=== PATIENT | male | born 1965 | race Caucasian/White ===

== ENCOUNTER 2017-01-10 19:15 | Emergency (ER) | payer OTHER ==
[2017-01-10] MEDS ORDERED: DIAZEPAM 10 MG/2 ML SYR IVP ONE (19:36)
[2017-01-10] MEDS ORDERED: ONDANSETRON 4 MG/2 ML VIAL IVP ONE (19:37)
[2017-01-10] MEDS ORDERED: NS 1,000 ML IV ONE (19:37)
[2017-01-10] MEDS ORDERED: MECLIZINE HCL 25 MG TAB PO ONE (19:37)
--- NOTE | 2017-01-10 19:42 | UCPHY ---
H & P Patient Type: Established Chief Complaint Nursing Narrative: C/o dizziness starting 30 min [employer]. 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 He has this fairly commonly especially when he is fatigued. He worked late last night and only got 4 hours asleep. He states that this is very typical of his disorder. He has been worked up by Neurology Dr. Wynn and had several MRIs all of which have been negative for ischemia. He has been told that this is not benign positional vertigo but is simply vertigo. It typically resolves with meclizine but not when it has progressed as far as it has today. He has meclizine and Valium at home but not here with him at work. He is nauseous but has not vomited. He does not have a fever. No tinnitus. No headache. his symptoms began about an hour ago while he was working. REVIEW OF SYSTEMS: Constitutional: denies: chills, fever, recent illness, recent injury EENTM: See HPI Respiratory: denies: cough, shortness of breath Cardiac: denies: chest pain, irregular heart rate, lightheadedness, palpitations Gastrointestinal/Abdominal: denies: abdominal pain, diarrhea, nausea, vomiting, blood streaked stools Genitourinary: denies: dysuria, frequency, hematuria, pain Musculoskeletal: denies: joint pain, muscle pain Skin: denies: lesions, rash, jaundice, bruising Neurological: denies: headache, numbness, paresthesia, tingling, dizziness, weakness Hematologic/Lymphatic: denies: blood clots, easy bleeding, easy bruising Immunologic/allergic: denies: HIV/AIDS, transplant EXAM: GENERAL: Well-appearing, well-nourished and in no acute distress. HEAD: Atraumatic, normocephalic. EYES: Mild nystagmus to the left. No to the right. Pupils equal round and reactive to light, extraocular movements intact, sclera anicteric, conjunctiva are normal. ENT: TMs normal, nares patent, oropharynx clear without exudates. Moist mucous membranes. NECK: Normal range of motion, supple without lymphadenopathy or JVD. LUNGS: Breath sounds clear to auscultation bilaterally and equal. No wheezes rales or rhonchi. HEART: Regular rate and rhythm without murmurs, rubs or gallops. ABDOMEN: Soft, nontender, normoactive bowel sounds. No guarding, no rebound. No masses appreciated. BACK: No CVA tenderness, no spinal tenderness, step-offs or deformities EXTREMITIES: Normal range of motion, no pitting or edema. No clubbing or cyanosis. NEUROLOGICAL: Cranial nerves II through XII grossly intact. Normal speech, normal gait. 5/5 strength, normal movement in all extremities, normal sensation PSYCH: Normal mood, normal affect. SKIN: Warm, dry, normal turgor, no visible rashes or lesions. Source: Patient Exam Limitations: No limitations - Personal History Current Tetanus Diphtheria and Acellular Pertussis (TDAP): Yes Tetanus Vaccine Date: within 10 years - Medical/Surgical History Hx Asthma: No Hx Chronic Respiratory Disease: No Hx Diabetes: No Hx Cardiac Disease: No Hx Renal Disease: No Hx Cirrhosis: No Hx Alcoholism: No Hx HIV/AIDS: No Hx Splenectomy or Spleen Trauma: No Other PMH: THORACIC DISCECTOMY, PROSTATE CANCER, prostatectomy, GERD, ACNE, vertigo, penile implant - Family History Significant Family History: No pertinent family hx - Social History Smoking Status: Never smoked Alcohol Use: Sober Drug Use: None Constitutional: Initial Vital Signs Temperature (C) 36.4 C 01/10/17 19:26 Heart Rate 67 01/10/17 19:26 Respiratory Rate 16 01/10/17 19:26 Blood Pressure 167/98 H 01/10/17 19:26 O2 Sat (%) 100 01/10/17 19:26 O2 Delivery Mode Room Air Allergies/Adverse Reactions: No Known Allergies Allergy (Verified 01/10/17 19:26) Home Medications: Medication Instructions Recorded Diazepam [Valium 5 MG (*)] 5 mg PO TID PRN #15 tab 01/10/17 Meclizine HCl [Meclizine HCl 25 mg 25 mg PO BID #20 tab 01/10/17 (RX,OTC)] Medical Decision Making ED Course/Re-evaluation: I will treat the patient with hydration, Valium and Zofran and then meclizine and observe. He declines any type of imaging. He has a normal neurologic examination other than the nystagmus. He is able to ambulate. 9:15 p.m. the patient is feeling much better. He is eager to go home. His is here to pick him up. He is ambulating without difficulty. He will follow up with his neurologist. I did offer to perform Verito maneuver but warned the patient that it may make him vomit. He declined the procedure and will possibly attempted at home or follow-up with ENT. Differential Diagnosis: Partial list of the Differential diagnosis considered include but were not limited to; vertigo, benign positional vertigo and although unlikely based on the history and physical exam, I also considered CVA, thrombosis, infection. I discussed these differential diagnoses and the plan with the patient as well as the usual and expected course. The patient understands that the diagnosis is provisional and that in medicine we are not always correct and that further workup is often warranted. Usual and customary warnings were given. All of the patient's questions were answered. The patient was instructed to return to the emergency department should the symptoms at all worsen or return, otherwise to followup with the physician as we discussed. - Data Points Medications Given: Discontinued Medications Diazepam (Valium Injection) 5 mg IVP EDNOW ONE Stop: 01/10/17 19:37 Last Admin: 01/10/17 19:54 Dose: 5 mg Sodium Chloride (Ns) 1,000 mls @ 0 mls/hr IV ONCE ONE PRN Reason: Wide Open Stop: 01/10/17 19:38 Last Admin: 01/10/17 19:38 Dose: 1,000 mls Meclizine HCl (Meclizine Hcl) 50 mg PO EDNOW ONE Stop: 01/10/17 19:38 Last Admin: 01/10/17 20:12 Dose: 50 mg Ondansetron HCl (Zofran) 4 mg IVP EDNOW ONE Stop: 01/10/17 19:38 Last Admin: 01/10/17 19:53 Dose: 4 mg Departure - Departure Disposition: Home, Routine, Self-Care Clinical Impression: Vertigo Condition: Fair Instructions: Vertigo (ED) Referrals: Janeen Juraez MD [Primary Care Provider] - As per Instructions Facundo Pastor MD [Medical Doctor] - As per Instructions Prescriptions: Diazepam [Valium 5 MG (*)] 5 mg PO TID PRN #15 tab PRN Reason: Spasms Meclizine HCl [Meclizine HCl 25 mg (RX,OTC)] 25 mg PO BID #20 tab - PQRS PQRS Measurement: Not applicable
[2017-01-10 20:40] VITALS: PULSE 76
[2017-01-10 21:41] VITALS: BP 124/83; RESP 16; TEMP 97.9; O2SAT 97
== END 2017-01-10 21:41 | disposition home or self-care (01) ==
LOC: CED 19:15
DX: R42 Dizziness and giddiness (principal); Z85.46 Personal history of malignant neoplasm of prostate; K21.9 Gastro-esophageal reflux disease without esophagitis
CPT/HCPCS: 96361-PO; 96374-PO; 96375-PO; G0463-PO; J2405